=== PATIENT | male | born 1975 | race Caucasian/White ===

== ENCOUNTER 2024-04-16 11:17 | Emergency (ER) | payer BC, SELFPAY ==
[2024-04-16 11:19] VITALS: BP 172/93
[2024-04-16] MEDS: VALTREX 1000 MG PO (11:43)
[2024-04-16] MEDS: DELTASONE 60 MG PO (11:43)
--- NOTE | 2024-04-16 11:45 | ED.GENMED ---
History of Present Illness
General
Chief Complaint: Ear Problem
Source: patient
Exam Limitations: none
Time Seen by Provider: 04/16/24 11:23
Nursing documentation reviewed up to this point in time: agreed with
History of Present Illness
History of Present Illness:
48-year-old male past medical history of hypertension and anxiety presenting to the emergency department today with concerns of right sided ear pain and swelling starting yesterday worsening today noticed some redness behind his ear and some
swelling into the area below his right jaw below his ear on the right side. Denies any fevers or systemic symptoms no difficulty swallowing or breathing. No injuries to the area.
Review of Systems
Review of Systems
Allergies reviewed?: Yes
All Other Systems: ROS reviewed and negative except as documented in HPI and ROS
Phy Exam
Physical Exam
Physical Exam:
GENERAL: Alert , in no apparent distress
EYE: pupils equal and reactive
NECK: Supple, no significant adenopathy.
ENT: Significant swelling of the right external ear some redness behind the ear but no tenderness or bogginess overlying the mastoid significant swelling below the right jaw at the area below the posterior mandible as well as the infra auricular
region. o/p clr, mmm.
CARDIAC: Regular rate and rhythm .
LUNGS: Clear breath sounds bilaterally, no acute respiratory distress, no wheezes/rales/rhonchi
ABDOMEN: Soft, without focal tenderness, no r/g, no cvat
NEUROLOGICAL: Alert and oriented, no focal neuro deficits
SKIN: Warm and dry, skin intact.
MUSCULOSKELETAL: No edema, well perfused.
PSYCH: Normal and appropriate interaction.
Course
Orders/Labs/Results
Orders:
Orders
04/16/24 11:33
CT Neck With Iv Contrast Urgent
Comment:
Reason For Exam: swelling in the ifraorbital region and below jaw R
Prednisone [Deltasone] 60 mg PO NOW STA
04/16/24 11:34
Valacyclovir HCl [Valtrex] 1,000 mg PO ONCE ONE
04/16/24 11:39
CBC/With Diff [Complete Blood Count/With Diff] Urgent
CMP [Comprehensive Metabolic Panel] Urgent
Abnormal Lab Results
04/16/24
11:39
Absolute Lymphs (auto) 0.9 L 10^3/uL
(1.2-3.4)
Absolute Monos (auto) 0.7 H 10^3/uL
(0.1-0.6)
Lymphocytes % 15.8 L %
(20.5-51.1)
Monocytes % 11.1 H %
(1.7-9.3)
Glucose 119 H mg/dl
(70-99)
04/16/24 11:39
04/16/24 11:39
Vital Signs
Initial and Last Documented VS:
Initial Vital Signs
Temp Pulse Resp BP Pulse Ox
99.1 F 95 16 172/93 98
04/16/24 11:19 04/16/24 11:19 04/16/24 11:19 04/16/24 11:19 04/16/24 11:19
Last Documented Vital Signs
Temp Pulse Resp BP Pulse Ox
99.1 F 95 16 172/93 98
04/16/24 11:19 04/16/24 11:19 04/16/24 11:19 04/16/24 11:19 04/16/24 11:19
MDM/Problems Addressed
MDM/Problems Addressed:
48-year-old male presenting to the emergency department today with concerns of swelling discomfort surrounding the right ear. Ongoing since yesterday no trouble swallowing or breathing blood pressure elevated upon arrival otherwise vital signs are
normal. The rash had some degree of vesicular component raising the possibility of shingles as it does seem to follow a single dermatome. With that being said there is moderate swelling below the chin and into the neck. CT scan was performed to
ensure no deeper space abscess or additional concerns. CT scan did not show emergent findings otherwise likely symptoms consistent with shingles. Stable for outpatient management return precautions given.
*Critical Care Note
Total Time (30-74mins, 75-104mins- exclusive of procedures): Not Applicable
ED Attending Note
-
Portions of this chart may have been created with voice recognition software.� Occasional wrong word or��sound alike� substitutions may have occurred due to the inherent limitations of voice recognition software.
Discharge Plan
Departure
Patient Disposition: Home (Routine Discharge)
Date of Disposition: 04/16/24
Time of Disposition: 14:48
Patient with high blood pressure during this ER visit?: Yes
Condition: Good
Covid-19: Not Applicable
Discharge Problem:
Shingles
Instructions: Shingles, BLOOD PRESSURE
Prescriptions:
New
prednisone 20 mg tablet
60 mg PO DAILY 6 Days Qty: 18 0RF
valacyclovir 1 gram tablet
1,000 mg PO TID 7 Days Qty: 21 0RF
Referrals:
Soraida Plata MD [Family Provider] -
Activity Restrictions/Additional Instructions:
You came to the emergency department today with concerns of inflammation and a rash to the right side of your head. This is likely consistent with shingles. Please take the prescribed occasions and follow-up closely as an outpatient with your
primary care doctor. Return to the emergency department any worsening, new or concerning symptoms.
Interventions
Interventions:
*Risk Screen - Suicide Last Done: 04/16/24 11:19
*General Assessment Last Done: 04/16/24 11:19
*Neglect/Abuse Screening Last Done: 04/16/24 11:19
ED- Fall Risk Assessment Last Done: 04/16/24 11:23
*ED COVID-19 Vaccine History Last Done: 04/16/24 11:19
Discharge Date and Time
Print Language: INDONESIAN
[2024-04-16 11:55] LABS: % Basophils 0.5 % (0-2); % Eosinophils 3.2 % (0-6); % Immature Granulocytes 0.5 % (0-0.5); % Lymphocytes 15.8 % (20.5-51.1); % Monocytes 11.1 % (1.7-9.3); % Neutrophils 68.9 % (42.2-75.2); Absolute Eosinophils 0.2 10^3/uL (0-0.7); Absolute Lymphocytes 0.9 10^3/uL (1.2-3.4); Absolute Monocytes 0.7 10^3/uL (0.1-0.6); Absolute Neutrophils 4.1 10^3/uL (1.4-6.5); Hematocrit 42.9 % (39.0-52.0); Mean Corpuscular Hgb 28.8 pg (27.0-31.0); Mean Corpuscular Volume 82.5 fL (80.0-94.0); Mean Platelet Volume 8.9 fL (7.4-10.4); Nucleated Red Blood Cells % 0 % (-); Platelet Count 195 10^3/uL (130-400); Red Cell Dist. Width 13.2 % (11.5-14.5)
[2024-04-16 12:18] LABS: ALT (SGPT) 33 U/L (0-50); AST (SGOT) 30 U/L (17-59); Albumin 4.2 g/dl (3.5-5.0); Alkaline Phosphatase 53 U/L (38-126); Blood Urea Nitrogen 14 mg/dl (9-20); Calcium 8.8 mg/dl (8.4-10.2); Carbon Dioxide 25 mmol/L (22-30); Chloride 102 mmol/L (98-107); Glucose 119 mg/dl (70-99); Potassium 3.7 mmol/L (3.5-5.1); Sodium 138 mmol/L (135-145); Total Bilirubin 0.7 mg/dl (0.2-1.3); Total Protein 7.2 g/dl (6.3-8.2); eGFR > 60.00
== END 2024-04-16 15:11 | disposition home or self-care (01) ==
LOC: EMR 11:17
PROVIDERS: Physician Assistant; EMERGENCY PHYSICIAN Student in an Organized Health Care Education/Training Program; FAMILY PHYSICIAN Family Medicine
DX: B02.9 Zoster without complications (principal); H92.01 Otalgia, right ear; R22.0 Localized swelling, mass and lump, head; I10 Essential (primary) hypertension; F41.9 Anxiety disorder, unspecified
CPT/HCPCS: 99284; 70491; 80053; 85025; Q9967

== ENCOUNTER 2024-08-07 09:31 | Emergency (ER) | payer OTHER, SELFPAY ==
[2024-08-07 09:33] VITALS: BP 129/82
--- NOTE | 2024-08-07 09:46 | ED.GENMED ---
History of Present Illness
General
Chief Complaint: Flank Pain
Time Seen by Provider: 08/07/24 09:45
History of Present Illness
History of Present Illness:
TIME OF INITIAL ENCOUNTER: 9:50 AM
HPI: Over the past 2 to 3 weeks, the patient was having relatively mild pain in the left flank region. At times it seemed to worsen when he moves certain positions. It worsened yesterday and then relatively abruptly this morning he had severe pain
in that same location. He did take 3 ibuprofen and now the pain does feel somewhat improved. He currently declines additional analgesia.
EXAM:
GENERAL: Well appearing in no distress, elevated BMI
HEENT: Moist oral mucosa
CARDIOVASCULAR: No murmurs, normal heart rate, regular rhythm, No chest wall tenderness
PULMONARY: No respiratory distress, breath sounds are clear and equal
ABDOMEN: Soft with no peritoneal signs, no tenderness
NEUROLOGIC: Excellent strength all extremities, no coordination deficits
BACK: Decreased active range of motion of the thoracolumbar spine due to pain, mild left CVA tenderness
PSYCHIATRIC: Appropriate mental status, normal insight and judgement
EXTREMITIES: Nontender, no edema, moves all extremities equally
SKIN: No rash, no lesions
NUMBER AND COMPLEXITY OF PROBLEMS ADDRESSED AT THE ENCOUNTER
� Chronic conditions affecting care: High blood pressure, anxiety
� Acute Exacerbation and/or Progression of Chronic Illness: This is an acute problem
� Differential Diagnosis includes: Ureteral stone/colic, UTI/pyelonephritis, musculoskeletal back pain, low suspicion for AAA
AMOUNT AND/OR COMPLEXITY OF DATA TO BE REVIEWED AND ANALYZED
� I performed an independent evaluation of and my interpretation is:
EKG:
CT: CT personally reviewed and I see no sign of ureteral stone or any other abnormality
X-rays:
Laboratory Studies: The patient does have 1+ blood in the urinalysis with no sign of infection, 0-2 red cells and white cells
Other:
� Review of other/old records: The patient was seen here in March with shingles
� Clinical information was obtained by an independent historian: I spoke to at bedside
� Prescriptions/Medications Considered but not given: Considered narcotic however will give Flexeril instead
� Further testing considered but not performed:
RISK OF COMPLICATIONS AND/OR MORBIDITY OR MORTALITY OF PATIENT MANAGEMENT
� Social determinants of health affecting care: Lives at home
� Discussion with other providers:
� Escalation of care including admission/observation vs risk of discharge considered: The patient initially declined any analgesia therefore no IV/labs were obtained. He later did have an increased amount of pain and then was
given an IM shot of Toradol. He reports some mild improvement but pain persists. He has a negative straight leg raise on reassessment. Suspect more of a musculoskeletal etiology. Recommend PMD follow-up and continued use of Motrin along with
Flexeril.
ANY OTHER UPDATES:
Phy Exam
Physical Exam
Physical Exam:
See HPI
Course
Orders/Labs/Results
Orders:
Orders
08/07/24 09:43
Urinalysis Reflex To Culture Urgent
Date Specimen was Collected: 08/07/24
Time Specimen was Collected: 09:37
Urine Microscopic Reflex Cult Urgent
08/07/24 10:20
CT Abd/pel Without Iv Or Oral Urgent
Comment:
Reason For Exam: L flank pain
08/07/24 11:38
Ketorolac [Toradol] 30 mg IM NOW STA
08/07/24 13:01
Cyclobenzaprine HCl [Flexeril] 10 mg PO NOW STA
Abnormal Lab Results
08/07/24
09:43
Ur Occult Blood Reflex 1+ A
(Negative)
Vital Signs
Initial and Last Documented VS:
Initial Vital Signs
Temp Pulse Resp BP Pulse Ox
36.8 C 85 18 129/82 97
08/07/24 09:33 08/07/24 09:33 08/07/24 09:33 08/07/24 09:33 08/07/24 09:33
Last Documented Vital Signs
Temp Pulse Resp BP Pulse Ox
36.8 C 76 16 137/64 98
08/07/24 09:33 08/07/24 11:39 08/07/24 11:39 08/07/24 11:39 08/07/24 11:39
*Critical Care Note
Total Time (30-74mins, 75-104mins- exclusive of procedures): Not Applicable
ED Attending Note
-
Portions of this chart may have been created with voice recognition software.� Occasional wrong word or��sound alike� substitutions may have occurred due to the inherent limitations of voice recognition software.
Discharge Plan
Departure
Patient Disposition: Home (Routine Discharge)
Date of Disposition: 08/07/24
Time of Disposition: 13:01
Patient with high blood pressure during this ER visit?: Yes
Discharge Problem:
Low back pain
Instructions: Low back pain in adults, Flank Pain (DC), Back exercises, BLOOD PRESSURE
Prescriptions:
New
cyclobenzaprine 10 mg tablet
10 mg PO TID PRN (Reason: pain) Qty: 15 0RF
No Action
prednisone 20 mg tablet
60 mg PO DAILY 6 Days Qty: 18 0RF
valacyclovir 1 gram tablet
1,000 mg PO TID 7 Days Qty: 21 0RF
Referrals:
Soraida Plaat MD [Family Provider] -
Activity Restrictions/Additional Instructions:
The cause of your symptoms is unclear but is more likely related to a musculoskeletal etiology. There is no sign of a kidney stone. Although the occult blood in the urine was slightly positive, there were actually no increase in the number of red
blood cells in the urine. The CAT scan did not show any signs of kidney stone or any other cause for your pain. I am sending a prescription for Flexeril to your pharmacy.
Interventions
Interventions:
*Risk Screen - Suicide Last Done: 08/07/24 09:33
*General Assessment Last Done: 08/07/24 09:33
*Neglect/Abuse Screening Last Done: 08/07/24 09:33
*ED- Fall Risk Assessment Last Done: 08/07/24 09:54
*ED COVID-19 Vaccine History Last Done: 08/07/24 09:54
OZ-Tweqlp-Cqhiaoxrpt Assessment Last Done: 08/07/24 09:54
ED-Male Genitourinary Assessment Last Done: 08/07/24 09:54
Discharge Date and Time
Print Language: SERBIAN
[2024-08-07 09:54] VITALS: BMI 37.1
[2024-08-07 10:03] LABS: Urine Albumin Negative (Neg - Trace); Urine Bilirubin Negative (Negative); Urine Character Clear (Clear); Urine Color Yellow; Urine Glucose Negative (Negative); Urine Ketone Negative (Negative); Urine Leukocyte Negative (Negative); Urine Nitrite Negative (Negative); Urine Occult Blood 1+ (Negative); Urine Urobilinogen Negative (Neg - 1+)
[2024-08-07 10:27] LABS: Urine Red Blood Cell 0-2 /HPF (0-2); Urine Squamous Cell 0-2 /LPF (Few); Urine White Cell 0-2 /HPF (0-5)
[2024-08-07 11:39] VITALS: BP 137/64
[2024-08-07] MEDS: TORADOL 30 MG IM (11:45)
[2024-08-07] MEDS: FLEXERIL 10 MG PO (13:21)
[2024-08-07 13:30] VITALS: BP 121/69
== END 2024-08-07 13:53 | disposition home or self-care (01) ==
LOC: EMR 09:31
PROVIDERS: EMERGENCY PHYSICIAN Emergency Medicine; FAMILY PHYSICIAN Family Medicine
DX: M54.50 Low back pain, unspecified (principal); R03.0 Elevated blood-pressure reading, without diagnosis of hypertension; F41.9 Anxiety disorder, unspecified
CPT/HCPCS: 99284; 96372; 74176; 81003; 81015

== ENCOUNTER 2024-09-29 18:24 | Emergency (ER) | payer OTHER, SELFPAY ==
[2024-09-29 18:28] VITALS: BP 139/89
[2024-09-29 18:47] LABS: % Basophils 0.5 % (0-2); % Eosinophils 2.1 % (0-6); % Immature Granulocytes 0.5 % (0-0.5); % Lymphocytes 18.2 % (20.5-51.1); % Monocytes 7.6 % (1.7-9.3); % Neutrophils 71.1 % (42.2-75.2); Absolute Eosinophils 0.2 10^3/uL (0-0.7); Absolute Lymphocytes 1.6 10^3/uL (1.2-3.4); Absolute Monocytes 0.7 10^3/uL (0.1-0.6); Absolute Neutrophils 6.1 10^3/uL (1.4-6.5); Hematocrit 43.6 % (39.0-52.0); Hemoglobin 15.2 g/dL (13.0-18.0); Mean Corp Hgb Conc. 34.9 g/dL (33.0-37.0); Mean Platelet Volume 8.9 fL (7.4-10.4); Nucleated Red Blood Cells % 0 % (-); Platelet Count 205 10^3/uL (130-400); Red Blood Cell Count 5.25 10^6/uL (4.70-6.10); Red Cell Dist. Width 13.3 % (11.5-14.5); White Blood Cell Count 8.6 10^3/uL (4.8-10.8)
[2024-09-29 18:59] LABS: ALT (SGPT) 35 U/L (0-50); AST (SGOT) 27 U/L (17-59); Albumin 4.7 g/dl (3.5-5.0); Alkaline Phosphatase 56 U/L (38-126); Blood Urea Nitrogen 19 mg/dl (9-20); Calcium 9.1 mg/dl (8.4-10.2); Carbon Dioxide 28 mmol/L (22-30); Chloride 104 mmol/L (98-107); Glucose 107 mg/dl (70-99); Potassium 3.7 mmol/L (3.5-5.1); Sodium 140 mmol/L (135-145); Total Bilirubin 0.9 mg/dl (0.2-1.3); Total Protein 7.7 g/dl (6.3-8.2); eGFR > 60.00
[2024-09-29 19:09] LABS: Troponin I < 0.012 ng/ml
[2024-09-29 21:31] VITALS: BP 137/78
[2024-09-29 21:46] VITALS: BMI 34.7
[2024-09-29] MEDS: TORADOL 30 MG IV (22:14)
[2024-09-29 22:32] LABS: D-Dimer < 0.27 ug/mlFEU (0.00-0.50)
[2024-09-29 22:44] LABS: Troponin I < 0.012 ng/ml
[2024-09-29 23:00] VITALS: BP 113/78
--- NOTE | 2024-09-30 00:10 | ED.GENMED ---
History of Present Illness
General
Chief Complaint: Chest Pain
Source: patient
Exam Limitations: none
Time Seen by Provider: 09/29/24 21:24
Nursing documentation reviewed up to this point in time: agreed with
History of Present Illness
History of Present Illness:
Patient to ED with sudden onset of left ant. chest pain. No radiation of pain. No associated n/v/diaphoresis. Denies any SOB. Brought to ED by spouse for eval.
Past History
Past History
ED Past Medical History: Other (pericarditis)
Review of Systems
Review of Systems
Allergies reviewed?: Yes
All Other Systems: ROS reviewed and negative except as documented in HPI and ROS
Constitutional: Reports no symptoms
EENT: Reports no symptoms
Respiratory: Reports no symptoms
Cardiac: Reports chest pain (left ant. chest pain)
ABD/GI: Reports no symptoms
: Reports no symptoms
Musculoskeletal: Reports no symptoms
Skin: Reports no symptoms
Neurological: Reports no symptoms
Psychiatric: Reports no symptoms
Phy Exam
General Physical Exam
General Presentation: well appearing and no apparent distress
General Skin: warm and dry
General Habitus: normal
Cardiovascular Exam
Cardiovascular Exam: regular rate/rhythm and no edema
Pulmonary Exam
Pulmonary Exam: lungs clear and no respiratory distress
Musculoskeletal Exam
Musculoskeletal Exam: full ROM and neuro vasc intact
Skin Exam
Skin Exam: normal color, warm/dry and no rash
Psychiatric Exam
Psychiatric Exam: normal mood/affect
Course
Orders/Labs/Results
Orders:
Orders
09/29/24 18:26
Electrocardiogram (*1) Urgent
Reason for Study: Chest Pain
Cardiac Monitoring- Treatment ONCE
EKG- Treatment ONCE
IV Insert/Care/Rem.- Treatment PRN
O2 Therapy [RESP] Urgent
Titrate/Wean O2 to maintain O2 sat greater than (%): 90
Special Instructions: Maintain sats >/=90%
Pulse Ox/spot Check [RESP] Urgent
Quantity: 1
Special Instructions: ON ROOM AIR
09/29/24 18:37
Complete Blood Count/With Diff Urgent
Comprehensive Metabolic Panel Urgent
Troponin I Urgent
09/29/24 21:42
CR Chest - 2 Views Urgent
Comment:
Reason For Exam: pain
09/29/24 21:49
Ketorolac [Toradol] 30 mg IV NOW STA
09/29/24 22:01
D-Dimer Urgent
Troponin I Urgent
Abnormal Lab Results
09/29/24
18:37
Absolute Monos (auto) 0.7 H 10^3/uL
(0.1-0.6)
Lymphocytes % 18.2 L %
(20.5-51.1)
Glucose 107 H mg/dl
(70-99)
09/29/24 18:37
09/29/24 18:37
Vital Signs
Initial and Last Documented VS:
Initial Vital Signs
Temp Pulse Resp BP Pulse Ox
98.3 F 92 16 139/89 97
09/29/24 18:28 09/29/24 18:28 09/29/24 18:28 09/29/24 18:28 09/29/24 18:28
Last Documented Vital Signs
Temp Pulse Resp BP Pulse Ox
98.3 F 85 21 113/78 97
09/29/24 18:28 09/29/24 23:30 09/29/24 23:30 09/29/24 23:00 09/29/24 23:40
Update Note
Update Note:
Patient to ED with left ant. chest pain. No radiation of pain. No aggravating or alleviating factors. No n/v/diaphoresis, no SOB. Improved with IV toradol. Labs reviewed. Troponin neg. x 2, Ddimer neg, EKG NSR. Will discharge home. He was
given instructions on s/s to return to ED and he is agreeable to plan.
ED Attending Note
-
Portions of this chart may have been created with voice recognition software.� Occasional wrong word or��sound alike� substitutions may have occurred due to the inherent limitations of voice recognition software.
Discharge Plan
Departure
Patient Disposition: Home (Routine Discharge)
Date of Disposition: 09/29/24
Time of Disposition: 23:16
Patient with high blood pressure during this ER visit?: No
Condition: Good
Covid-19: Not Applicable
Discharge Problem:
Chest pain
Instructions: Chest Pain NON-DHP Cushion Padder Follow Up
Prescriptions:
No Action
prednisone 20 mg tablet
60 mg PO DAILY 6 Days Qty: 18 0RF
valacyclovir 1 gram tablet
1,000 mg PO TID 7 Days Qty: 21 0RF
cyclobenzaprine 10 mg tablet
10 mg PO TID PRN (Reason: pain) Qty: 15 0RF
Referrals:
Soraida Plata MD [Family Provider] - Tomorrow
Activity Restrictions/Additional Instructions:
Return to the emergency department immediately for any changes in/worsening of your symptoms.
Interventions
Interventions:
*Risk Screen - Suicide Last Done: 09/29/24 18:28
*General Assessment Last Done: 09/29/24 18:28
*Neglect/Abuse Screening Last Done: 09/29/24 21:46
*ED- Fall Risk Assessment Last Done: 09/29/24 21:46
*ED COVID-19 Vaccine History Last Done: 09/29/24 21:46
*Nursing Disposition Last Done: 09/29/24 23:40
ED- Cardiac Assessment Last Done: 09/29/24 21:46
Discharge Date and Time
Discharge Date/Time: 09/29/24 23:40
Print Language: [place]
== END 2024-09-29 23:40 | disposition home or self-care (01) ==
LOC: EMR 18:24
PROVIDERS: Nurse Practitioner; EMERGENCY PHYSICIAN Student in an Organized Health Care Education/Training Program; FAMILY PHYSICIAN Family Medicine
DX: R07.89 Other chest pain (principal)
CPT/HCPCS: 96374; 99285; 71046; 80053; 84484; 85025; 85379; 93005